=== PATIENT | male | born 1965 | race Hispanic/Latino ===

== ENCOUNTER → 2023-01-23 | Day surgery (SDC) | payer OTHER ==
[~2023-01-23] MED LIST: LACTATED RINGER'S 1,000 ML ONE; LIDOCAINE HCL 2% LOCAL INJ 5 ML SDV VIAL INJ ONE; MELOXICAM7.5 MG PO; MIDAZOLAM HCL 2 MG/2 ML VIAL ONE; PROPOFOL IV EMULSION 10 MG/ML 20 ML VIAL ONE; blood pressure PO
[2023-01-23 12:00] VITALS: TEMP 97.5
[2023-01-23 12:15] VITALS: BP 164/93; PULSE 61; RESP 16; O2SAT 99
== END | disposition home or self-care (01) ==
LOC: OR 09:10
PROVIDERS: ATTEND Internal Medicine Gastroenterology
DX: Z12.11 Encounter for screening for malignant neoplasm of colon (principal); K57.30 Diverticulosis of large intestine without perforation or abscess without bleeding; K64.8 Other hemorrhoids; I10 Essential (primary) hypertension; Z01.810 Encounter for preprocedural cardiovascular examination; Z79.1 Long term (current) use of non-steroidal anti-inflammatories (NSAID); Z79.899 Other long term (current) drug therapy
CPT/HCPCS: 45378; 93005; J2001; J2250; J2704; J7121